=== PATIENT | female | born 1990 | race Caucasian/White ===

== ENCOUNTER 2017-06-08 09:07 | Emergency (ER) | payer BC, OTHER ==
[2017-06-08] MEDS ORDERED: Rhogam IMMUNE GLOBULIN 1,500 UNIT/1 ML IM ONE (09:23)
--- NOTE | 2017-06-08 10:01 | ED ---
General Adult HPI - General Chief complaint: Abdominal Pain Stated complaint: 6wks preg, cramping Time Seen by Provider: 06/08/17 09:22 Source: patient, RN notes reviewed Mode of arrival: ambulatory Limitations: no limitations - History of Present Illness Initial comments: 26-year-old female presents emergency department with chief complaint of vaginal bleeding. Patient states she is currently 6 weeks A0. Patient states she woke up this morning around 2:30 AM with some cramping primarily on the right side. She states that there is very minimal spotting. Patient states that she is negative blood type. Patient states that she's had a prior's sister and section. Patient denies any dysuria or hematuria. Denies any flank pain, nausea, vomiting diarrhea, constipation, fever or chills. - Related Data Home Medications Medication Instructions Recorded Confirmed Hjw-Mwki-Dyaze Acid 1 cap PO HS 06/08/17 06/08/17 [-U Capsule (formulary)] Allergies Allergy/AdvReac Type Severity Reaction Status Date / Time No Known Allergies Allergy Verified 06/08/17 09:35 Review of Systems ROS Statement: Those systems with pertinent positive or pertinent negative responses have been documented in the HPI. ROS Other: All systems not noted in ROS Statement are negative. Past Medical History Past Medical History: Hypertension History of Any Multi-Drug Resistant Organisms: None Reported Past Surgical History: Cholecystectomy Past Anesthesia/Blood Transfusion Reactions: No Reported Reaction Past Psychological History: No Psychological Hx Reported Smoking Status: Never smoker Past Alcohol Use History: Rare Past Drug Use History: None Reported - Past Family History Father Family Medical History: Hypertension General Exam Limitations: no limitations General appearance: alert, in no apparent distress Respiratory exam: Present: normal lung sounds bilaterally. Absent: respiratory distress, wheezes, rales, rhonchi, stridor Cardiovascular Exam: Present: regular rate, normal rhythm, normal heart sounds. Absent: systolic murmur, diastolic murmur, rubs, gallop, clicks GI/Abdominal exam: Present: soft, tenderness ( minimal suprapubic to right sided ), normal bowel sounds. Absent: distended, guarding, rebound, rigid Back exam: Absent: CVA tenderness (R), CVA tenderness (L) Skin exam: Present: warm, dry, intact, normal color. Absent: rash Course Vital Signs 06/08/17 09:18 Temperature 98 F Pulse Rate 92 Respiratory 20 Rate Blood Pressure 138/73 O2 Sat by Pulse 100 Oximetry Medical Decision Making - Medical Decision Making 26-year-old female presented emergency department for abdominal pain and cramping vaginal bleeding and . Patient has a single viable IUP 6 weeks 1 day. Patient is O- and she will be given RhoGAM. Patient's initial follow-up in which she went for pelvic exam at this time. Patient will be discharged return parameters were discussed. - Lab Data Result diagrams: 06/08/17 09:43 06/08/17 09:43 Lab Results 06/08/17 06/08/17 06/08/17 Range/Units 09:43 09:43 09:43 WBC 9.5 (3.8-10.6) k/uL RBC 4.74 (3.80-5.40) m/uL Hgb 14.4 (11.4-16.0) gm/dL Hct 41.8 (34.0-46.0) % MCV 88.4 (80.0-100.0) fL MCH 30.4 (25.0-35.0) pg MCHC 34.4 (31.0-37.0) g/dL RDW 14.1 (11.5-15.5) % Plt Count 293 (150-450) k/uL Neutrophils % 80 % Lymphocytes % 13 % Monocytes % 4 % Eosinophils % 1 % Basophils % 0 % Neutrophils # 7.6 (1.3-7.7) k/uL Lymphocytes # 1.3 (1.0-4.8) k/uL Monocytes # 0.4 (0-1.0) k/uL Eosinophils # 0.1 (0-0.7) k/uL Basophils # 0.0 (0-0.2) k/uL Sodium 137 (137-145) mmol/L Potassium 4.0 (3.5-5.1) mmol/L Chloride 104 (98-107) mmol/L Carbon Dioxide 22 (22-30) mmol/L Anion Gap 11 mmol/L BUN 13 (7-17) mg/dL Creatinine 0.70 (0.52-1.04) mg/dL Est GFR (MDRD) Af Amer >60 (>60 ml/min/1.73 sqM) Est GFR (MDRD) Non-Af >60 (>60 ml/min/1.73 sqM) Glucose 113 H (74-99) mg/dL Calcium 9.2 (8.4-10.2) mg/dL Urine Color Urine Appearance (Clear) Urine pH (5.0-8.0) Ur Specific Stow (1.001-1.035) Urine Protein (Negative) Urine Glucose (UA) (Negative) Urine Ketones (Negative) Urine Blood (Negative) Urine Nitrite (Negative) Urine Bilirubin (Negative) Urine Urobilinogen (<2.0) mg/dL Ur Leukocyte Esterase (Negative) Urine RBC (0-5) /hpf Urine WBC (0-5) /hpf Ur Squamous Epith Cells (0-4) /hpf Urine Bacteria (None) /hpf Urine Mucus (None) /hpf Blood Type O Negative Blood Type Recheck No Antibody Screen NEGATIVE Spec Expiration Date 06/11/2017 - 234206/08/17 Range/Units 09:55 WBC (3.8-10.6) k/uL RBC (3.80-5.40) m/uL Hgb (11.4-16.0) gm/dL Hct (34.0-46.0) % MCV (80.0-100.0) fL MCH (25.0-35.0) pg MCHC (31.0-37.0) g/dL RDW (11.5-15.5) % Plt Count (150-450) k/uL Neutrophils % % Lymphocytes % % Monocytes % % Eosinophils % % Basophils % % Neutrophils # (1.3-7.7) k/uL Lymphocytes # (1.0-4.8) k/uL Monocytes # (0-1.0) k/uL Eosinophils # (0-0.7) k/uL Basophils # (0-0.2) k/uL Sodium (137-145) mmol/L Potassium (3.5-5.1) mmol/L Chloride (98-107) mmol/L Carbon Dioxide (22-30) mmol/L Anion Gap mmol/L BUN (7-17) mg/dL Creatinine (0.52-1.04) mg/dL Est GFR (MDRD) Af Amer (>60 ml/min/1.73 sqM) Est GFR (MDRD) Non-Af (>60 ml/min/1.73 sqM) Glucose (74-99) mg/dL Calcium (8.4-10.2) mg/dL Urine Color Yellow Urine Appearance Cloudy H (Clear) Urine pH 6.5 (5.0-8.0) Ur Specific Stow 1.019 (1.001-1.035) Urine Protein Trace H (Negative) Urine Glucose (UA) Negative (Negative) Urine Ketones Negative (Negative) Urine Blood Negative (Negative) Urine Nitrite Negative (Negative) Urine Bilirubin Negative (Negative) Urine Urobilinogen <2.0 (<2.0) mg/dL Ur Leukocyte Esterase Negative (Negative) Urine RBC 1 (0-5) /hpf Urine WBC 1 (0-5) /hpf Ur Squamous Epith Cells 21 H (0-4) /hpf Urine Bacteria Rare H (None) /hpf Urine Mucus Rare H (None) /hpf Blood Type Blood Type Recheck Antibody Screen Spec Expiration Date Disposition Clinical Impression: Threatened miscarriage in early Disposition: HOME SELF-CARE Condition: Stable Instructions: Threatened Miscarriage (ED) Additional Instructions: Please return to the Emergency Department if symptoms worsen or any other concerns. Referrals: Noel Chisholm MD [Primary Care Provider] - 1-2 days Time of Disposition: 10:48
[2017-06-08 10:02] LABS: Basophils % (A) 0 %; CH 30.9; CHCM 35.1; Eosinophils # (A) 0.1 k/uL (0-0.7); Eosinophils % (A) 1 %; HCT 41.8 % (34.0-46.0); HDW 2.46; HGB 14.4 gm/dL (11.4-16.0); Luc # (Auto) 0.13; Luc % (Auto) 1; Lymphocytes # (A) 1.3 k/uL (1.0-4.8); Lymphocytes % (A) 13 %; MCH 30.4 pg (25.0-35.0); MCHC 34.4 g/dL (31.0-37.0); MCV 88.4 fL (80.0-100.0); Mean Platelet Volume 7.1; Monocytes # (A) 0.4 k/uL (0-1.0); Monocytes % (A) 4 %; Neutrophils # (A) 7.6 k/uL (1.3-7.7); Neutrophils % (A) 80 %; RBC 4.74 m/uL (3.80-5.40); RDW 14.1 % (11.5-15.5); WBC 9.5 k/uL (3.8-10.6); WBC (Perox) 9.61
[2017-06-08 10:09] LABS: Appearance,Urine Cloudy (Clear); Bacteria,Urine Rare /hpf; Bilirubin,Urine Negative (Negative); Glucose,Urine (UA) Negative (Negative); Ketones,Urine Negative (Negative); Leukocyte Esterase,Urine Negative (Negative); Mucus,Urine Rare /hpf; Nitrite,Urine Negative (Negative); PH, Urine 6.5 (5.0-8.0); Particle Count 5624; Protein,Urine Trace (Negative); RBC,Urine 1 /hpf (0-5); Specific Gravity,Urine 1.019 (1.001-1.035); Squamous Epithelial Cell,Urine 21 /hpf (0-4); UA Billing (MACRO vs. MICRO) MICRO; Urobilinogen,Urine <2.0 mg/dL (<2.0); WBC,Urine 1 /hpf (0-5)
[2017-06-08 10:11] LABS: Anion Gap 11 mmol/L; Blood Urea Nitrogen 13 mg/dL (7-17); Calcium 9.2 mg/dL (8.4-10.2); Carbon Dioxide 22 mmol/L (22-30); Chloride 104 mmol/L (98-107); Glucose 113 mg/dL (74-99); Non-African American GFR(MDRD) >60 (>60 ml/min/1.73 sqM); Sodium 137 mmol/L (137-145)
--- NOTE | 2017-06-08 10:38 | US ---
EXAMINATION TYPE: US OB <=14 wks transvag DATE OF EXAM: 06/08/2017 COMPARISON: NONE CLINICAL HISTORY: Pain. cramping, spotting x 1 day EXAM PERFORMED: Transvaginal (TV) and Transabdominal (TA) endovaginal scanning performed for better evaluation of the fetus. EXAM MEASUREMENTS: GESTATIONAL AGE / DATING Physician Established: ( 6 weeks/4 days) EDC: 01/28/18 Dates by LMP: (6 weeks/4 days) EDC: 01/28/18 Dates by First Scan: No previous Dates by Current Scan for: ( 6 weeks/1 days) EDC: 01/31/17 MATERNAL ANATOMY Uterus: 9.5 x 7.4 x 5.2 cm Right Ovary: 1.9 x 1.8 x 1.4 cm Left Ovary: 3.3 x 2.4 x 2.0 cm Post CDS / Adnexa: wnl Presence of free fluid: no Presence of corpus luteal cyst: no Presence of subchorionic bleed: no GESTATION / SURVEY CRL: 0.5 cm 6eeks/0 days) MSD: 1.7 cm 6eeks/2 days) Yolk Sac (normal less than 6mm): 0.3 cm Heart Rate: 120pm Rhythm: Normal IUP: Viable IUP Date of LMP: 04/23/17 Beta HcG (if available): IMPRESSION: Single viable intrauterine corresponding to ultrasound age 6 weeks 1 day with estimated gilberto e of delivery 01/31/2018 by today's exam. Limited survey.
[2017-06-08 11:10] VITALS: BP 120/80; PULSE 78; RESP 16; TEMP 97.8
== END 2017-06-08 11:08 | disposition home or self-care (01) ==
LOC: EC 09:07
DX: O20.0 Threatened abortion (principal); Z67.41 Type O blood, Rh negative; Z79.899 Other long term (current) drug therapy; Z90.49 Acquired absence of other specified parts of digestive tract; Z98.890 Other specified postprocedural states; Z3A.01 Less than 8 weeks gestation of pregnancy
CPT/HCPCS: 99284; 96372; 90384; 36415; 86900; 86901; 80048; 85025; 86850; 81001; 84702; 76801; 76817; J2791

== ENCOUNTER → 2017-06-24 | Outpatient (CLI) | payer OTHER ==
[2017-06-24 10:44] LABS: Glucose 110 mg/dL (74-99); Non-African American GFR(MDRD) >60 (>60 ml/min/1.73 sqM)
[2017-06-24 11:05] LABS: CH 29.3; CHCM 33.3; HDW 2.33; HGB 13.5 gm/dL (11.4-16.0); MCH 29.8 pg (25.0-35.0); MCHC 33.8 g/dL (31.0-37.0); MCV 88.2 fL (80.0-100.0); Mean Platelet Volume 6.6; RBC 4.53 m/uL (3.80-5.40); RDW 12.9 % (11.5-15.5); WBC 7.9 k/uL (3.8-10.6)
[2017-06-24 11:16] LABS: Hepatitis B Surface Ag Index 0.06
== END | disposition home or self-care (01) ==
LOC: LABWHC1 10:04
PROVIDERS: ATTEND Obstetrics & Gynecology
DX: Z34.81 Encounter for supervision of other normal pregnancy, first trimester (principal)
CPT/HCPCS: 36415; 82565; 82947; 85027; 86762; 86780; 86850; 86870; 86880; 86900; 86901; 87340

== ENCOUNTER → 2017-10-16 | Outpatient (CLI) | payer OTHER ==
[2017-10-16 10:50] LABS: HCT 37.9 % (34.0-46.0); MCH 29.1 pg (25.0-35.0); MCHC 31.7 g/dL (31.0-37.0); MCV 91.7 fL (80.0-100.0); Mean Platelet Volume 7.3; Platelet Count 254 k/uL (150-450); RBC 4.14 m/uL (3.80-5.40); RDW 15.3 % (11.5-15.5); WBC 15.4 k/uL (3.8-10.6)
== END | disposition home or self-care (01) ==
LOC: LABWHC1 09:23
PROVIDERS: ATTEND Obstetrics & Gynecology
DX: Z34.82 Encounter for supervision of other normal pregnancy, second trimester (principal); Z3A.00 Weeks of gestation of pregnancy not specified
CPT/HCPCS: 36415; 82950; 85027; 86850

== ENCOUNTER 2018-01-21 06:00 | Inpatient (IN) | payer BC, OTHER ==
[2018-01-20 16:22] VITALS: BMI 38.7
[2018-01-21] MEDS ORDERED: ceFAZolin IN SWFI 2 GM/20 ML SYRINGE IVP ONE (06:25)
[2018-01-21] MEDS ORDERED: CITRIC ACID-SODIUM CITRATE 15 ML CUP PO ONE (06:25)
[2018-01-21] MEDS: LACTATED RINGERS 1,000 ML IV SCH ×2 (06:37→20:39)
[2018-01-21 06:53] LABS: Basophils % (A) 0 %; Eosinophils # (A) 0.1 k/uL (0-0.7); Eosinophils % (A) 1 %; HCT 34.6 % (34.0-46.0); HGB 11.4 gm/dL (11.4-16.0); Lymphocytes # (A) 2.2 k/uL (1.0-4.8); Lymphocytes % (A) 17 %; MCH 28.6 pg (25.0-35.0); MCV 86.5 fL (80.0-100.0); Mean Platelet Volume 7.3; Monocytes # (A) 0.7 k/uL (0-1.0); Monocytes % (A) 6 %; Neutrophils # (A) 9.4 k/uL (1.3-7.7); Neutrophils % (A) 74 %; Platelet Count 243 k/uL (150-450); RDW 14.6 % (11.5-15.5); WBC 12.8 k/uL (3.8-10.6)
[2018-01-21] MEDS ORDERED: ONDANSETRON 4 MG/2 ML VIAL ONE (10:06)
[2018-01-21] MEDS ORDERED: PHENYLEPHRINE-0.9% NACL SYG 1 MG/10 ML SYRINGE ONE (10:06)
[2018-01-21] MEDS ORDERED: MORPHINE SULFATE (PF) 0.3 MG/0.3 ML SYR ONE (10:06)
[2018-01-21] MEDS ORDERED: OXYTOCIN 10 UNIT/ML 1 ML VIAL ONE (10:06)
[2018-01-21] MEDS ORDERED: DEXAMETHASONE SOD PHOS (MDV) 100 MG/10 ML VIAL ONE (10:06)
[2018-01-21] MEDS ORDERED: diphenhydrAMINE 50 MG/ML 1 ML VIAL ONE (10:06)
[2018-01-21] MEDS ORDERED: KETOROLAC 30 MG/ML 1 ML VIAL ONE (10:06)
[2018-01-21] MEDS ORDERED: ONDANSETRON 4 MG/2 ML VIAL IVP PRN (10:31)
[2018-01-21] MEDS ORDERED: diphenhydrAMINE 50 MG/ML 1 ML VIAL IVP PRN ×2 (10:31→10:45)
[2018-01-21] MEDS ORDERED: MORPHINE SULFATE 4 MG/ML SYRINGE IVP PRN (10:31)
[2018-01-21] MEDS ORDERED: NALOXONE 0.4 MG/ML 1 ML VIAL IV PRN (10:31)
[2018-01-21] MEDS ORDERED: diphenhydrAMINE 50 MG CAP PO PRN (10:45)
[2018-01-21] MEDS ORDERED: METOCLOPRAMIDE 5 MG/ML 2 ML VIAL IVP PRN (10:45)
[2018-01-21] MEDS ORDERED: diphenhydrAMINE 25 MG CAP PO PRN (10:45)
[2018-01-21] MEDS ORDERED: Rhogam IMMUNE GLOBULIN 1,500 UNIT/1 ML IM ONE (10:45)
[2018-01-21] MEDS ORDERED: SIMETHICONE 80 MG CHEWABLE PO PRN (10:45)
[2018-01-21] MEDS ORDERED: OXYTOCIN 20 UNITS/1000 ML NS 1,000 ML IV SCH (10:45)
[2018-01-21] MEDS ORDERED: ZOLPIDEM 5 MG TAB PO PRN (10:45)
[2018-01-21] MEDS ORDERED: MORPHINE SULFATE 4MG/4ML SYRG IVP PRN (10:50)
--- NOTE | 2018-01-21 12:57 | P.HPOB ---
History of Present Illness H&P Date: 01/21/18 Chief Complaint: RLTCS 27-year-old presents at 39 weeks and 1 day for repeat low transverse C- section. Review of Systems All systems: negative Constitutional: Denies chills, Denies fever Eyes: denies blurred vision, denies pain Ears, nose, mouth and throat: Denies headache, Denies sore throat Cardiovascular: Denies chest pain, Denies shortness of breath Respiratory: Denies cough Gastrointestinal: Denies abdominal pain, Denies diarrhea, Denies nausea, Denies vomiting Genitourinary: Denies dysuria, Denies hematuria Musculoskeletal: Denies myalgias Integumentary: Denies pruritus, Denies rash Neurological: Denies numbness, Denies weakness Psychiatric: Denies anxiety, Denies depression Endocrine: Denies fatigue, Denies weight change Past Medical History Additional Past Medical History / Comment(s): Obstetric history: She's had 3 pregnancies. Her first was elective termination. Her second was a section due to failure to progress. This is her third . She's had care with ne since 9 weeks gestation. Blood type is O-, rubella nonimmune, treponema antibody negative, hepatitis B negative. Normal 1 hour glucose tolerance test. Milligram given at 20 weight 8 weeks and 5 days on November 09 2017. History of Any Multi-Drug Resistant Organisms: None Reported Past Surgical History: Section, Cholecystectomy Past Anesthesia/Blood Transfusion Reactions: No Reported Reaction Past Psychological History: No Psychological Hx Reported Smoking Status: Never smoker Past Alcohol Use History: Rare Additional Past Alcohol Use History / Comment(s): SOCIAL WHEN NOT Past Drug Use History: None Reported - Past Family History Father Family Medical History: Hypertension Medications and Allergies Home Medications Medication Instructions Recorded Confirmed Type Ewd-Vjsb-Uovpu Acid 1 cap PO HS 06/08/17 01/21/18 History [-U Capsule (formulary)] Allergies Allergy/AdvReac Type Severity Reaction Status Date / Time No Known Allergies Allergy Verified 01/20/18 16:14 Exam Osteopathic Statement: *. No significant issues noted on an osteopathic structural exam other than those noted in the History and Physical/Consult. - Vital Signs Vital signs: Vital Signs Temp Pulse Resp BP Pulse Ox 01/21/18 12:23 96.8 F L 85 16 113/59 01/21/18 11:54 78 16 115/68 01/21/18 11:39 96.3 F L 79 16 116/67 01/21/18 11:31 16 99 01/21/18 11:24 86 16 115/57 01/21/18 11:08 82 16 114/59 01/21/18 10:54 96.8 F L 82 16 111/56 98 01/21/18 10:31 16 99 01/21/18 06:25 96.7 F L 97 16 133/82 98 Intake and Output 01/20/18 01/21/18 01/21/18 22:59 06:59 14:59 Output Total 400 Balance -400 Output: Estimated Blood Loss 400 Other: Weight 122.47 kg 122.47 kg Heart: Regular rate and rhythm Lungs: Clear to auscultation bilaterally Abdomen: Soft, nontender Extremities: Negative Homans sign Results Result Diagrams: 01/21/18 06:39 Abnormal Lab Results - Last 24 Hours (Table) 01/21/18 Range/Units 06:39 WBC 12.8 H (3.8-10.6) k/uL Neutrophils # 9.4 H (1.3-7.7) k/uL Assessment and Plan (1) Previous section Current Visit: Yes Status: Acute Code(s): Z98.891 - HISTORY OF UTERINE SCAR FROM PREVIOUS SURGERY SNOMED Code(s): 727398378 Plan: 1. Repeat low transverse
--- NOTE | 2018-01-21 12:58 | P.OP ---
Date of Procedure: 01/21/18 Preoperative Diagnosis: 1. at 39 weeks and 1 day 2. Previous low transverse Postoperative Diagnosis: 1. at 39 weeks and 1 day 2. Previous low transverse Procedure(s) Performed: Repeat low transverse Anesthesia: spinal Surgeon: Fang Marinelli [employer] Director #1: Peace Vivar Estimated Blood Loss (ml): 400 IV fluids (ml): 400 Urine output (ml): 50 Pathology: other (placenta) Condition: stable Disposition: floor Operative Findings: Viable male, Apgars 9, 9, weight 7 lbs. 6 oz. normal uterus tubes and ovaries Description of Procedure: Patient was taken to the operating room where spinal anesthesia was found be adequate. She was prepped and draped in normal sterile fashion in dorsal supine position with a leftward tilt. Pfannenstiel skin incision was made the scalpel and carried through to the underlying layer of fascia with the scalpel. Fascia was incised in midline and carried bilaterally with the Begum scissors. The superior aspect of the fascial incision was grasped with James clamps elevated and the underlying rectus muscles dissected off with the Begum's. Attention was then turned to inferior aspect of same incision which in a similar fashion was grasped tented up and the underlying rectus muscles dissected off with the Begum's. The rectus muscles were the midline and the peritoneum was identified tented up and entered sharply with the scalpel. The incision was extended superiorly and inferiorly with good visualization of the bladder. The bladder blade was inserted and the vesicouterine peritoneum was incised the Metzenbaums then carried bilaterally and bladder flap created digitally. A low transverse incision was then made on the uterus with the scalpel. This was carried bilaterally and digital manner. Infant's head delivered atraumatically, nose and mouth bulb suctioned, cord clamped and cut, handed off to waiting nurses. Apgars 9,9, weight 7 lbs. 6 oz. Placenta delivered manually, intact with three-vessel cord. The uterus is exteriorized and cleared of all clots and debris. The uterine incision was closed with 0 Vicryl in a running locked fashion. Second layer of the same sutures used in imbricating fashion to obtain excellent hemostasis. Both ovaries and tubes appeared normal. The uterus was placed back into the abdomen. The peritoneum was reapproximated using 2-0 Vicryl in a running fashion. The muscles were reapproximated using 2-0 Vicryl in interrupted fashion. The fascia was reapproximated using 0 Vicryl in a running fashion. The subcutaneous tissues closed with 3-0 Vicryl running fashion. The skin was closed serg. Patient tolerated the procedure well, sponge and instrument counts were correct times 2 and she was taken to the recovery room in stable condition.
[2018-01-21] MEDS ORDERED: MORPHINE SULFATE 4 MG/0.8 ML SYRINGE (INJ) IVP PRN (13:08)
[2018-01-21] MEDS: KETOROLAC 30 MG/ML 1 ML VIAL IVP PRN (18:35)
[2018-01-21] MEDS: SENNOSIDES-DOCUSATE SODIUM 1 EACH TAB PO SCH (20:09)
[2018-01-22] MEDS: KETOROLAC 30 MG/ML 1 ML VIAL IVP PRN ×2 (00:34→07:59)
[2018-01-22] MEDS: LACTATED RINGERS 1,000 ML IV SCH ×2 (00:53→01:26)
[2018-01-22 08:19] LABS: Basophils % (A) 0 %; Eosinophils # (A) 0.1 k/uL (0-0.7); Eosinophils % (A) 1 %; HCT 32.9 % (34.0-46.0); HGB 10.9 gm/dL (11.4-16.0); Lymphocytes # (A) 2.2 k/uL (1.0-4.8); Lymphocytes % (A) 15 %; MCHC 33.1 g/dL (31.0-37.0); MCV 87.5 fL (80.0-100.0); Mean Platelet Volume 7.6; Monocytes # (A) 0.6 k/uL (0-1.0); Monocytes % (A) 4 %; Neutrophils # (A) 11.1 k/uL (1.3-7.7); Neutrophils % (A) 79 %; Platelet Count 223 k/uL (150-450); RBC 3.77 m/uL (3.80-5.40); RDW 14.7 % (11.5-15.5); WBC 14.1 k/uL (3.8-10.6)
--- NOTE | 2018-01-22 10:52 | P.PNOBGPC ---
Subjective - Subjective Principal diagnosis: Status post repeat low transverse . POD #1 Interval history: Patient seen and examined. Denies nausea, vomiting, chest pain, shortness of breath or calf pain. Patient reports: Reports appetite normal, Reports voiding normally, Reports pain well controlled, Reports ambulating normally [place]ow: doing well Objective - Vital Signs Latest vital signs: Vital Signs Temp Pulse Resp BP Pulse Ox 01/22/18 08:00 97.0 F L 80 16 116/64 01/22/18 05:46 18 01/22/18 05:00 17 01/22/18 04:30 97.9 F 76 17 111/70 97 01/22/18 03:00 18 01/22/18 00:50 18 01/22/18 00:00 97.8 F 83 18 125/66 100 01/21/18 23:00 18 01/21/18 20:38 18 01/21/18 20:05 97.8 F 84 18 125/72 98 01/21/18 19:00 18 01/21/18 17:00 16 01/21/18 15:48 98.6 F 91 16 92/65 01/21/18 14:47 16 01/21/18 13:31 16 01/21/18 12:54 97.4 F L 90 16 128/61 01/21/18 12:23 96.8 F L 85 16 113/59 01/21/18 11:54 78 16 115/68 01/21/18 11:39 96.3 F L 79 16 116/67 01/21/18 11:31 16 99 01/21/18 11:24 86 16 115/57 01/21/18 11:08 82 16 114/59 01/21/18 10:54 96.8 F L 82 16 111/56 98 Intake and Output 01/21/18 01/22/18 01/22/18 22:59 06:59 14:59 Output Total 800 800 900 Balance -800 -800 -900 Output: Urine 800 800 900 Other: # Voids 1 - Exam Lungs: bilateral: normal Chest: Normal S1, Normal S2 Extremities: Present: normal Abdomen: Present: normal appearance, soft. Absent: distention, tenderness Incision: Present: normal, dry, intact Uterus: Present: normal, firm - Labs Labs: Abnormal Lab Results - Last 24 Hours (Table) 01/22/18 Range/Units 08:07 WBC 14.1 H (3.8-10.6) k/uL RBC 3.77 L (3.80-5.40) m/uL Hgb 10.9 L (11.4-16.0) gm/dL Hct 32.9 L (34.0-46.0) % Neutrophils # 11.1 H (1.3-7.7) k/uL Assessment and Plan (1) Previous section Current Visit: Yes Status: Acute Code(s): Z98.891 - HISTORY OF UTERINE SCAR FROM PREVIOUS SURGERY SNOMED Code(s): 876413479 Plan: 1. Increase ambulation 2. Pain control 3. Regular diet
[2018-01-22] MEDS ORDERED: HYDROcodone/APAP 7.5-325MG 1 EACH TAB PO PRN (10:55)
--- NOTE | 2018-01-22 11:59 | P.PN ---
Progress Note - Text Progress Note Date: 01/22/18 Postoperative day 1 status post section under spinal anesthesia, and intrathecal morphine given for postoperative analgesia, patient doing well, there is no paresthesia related complications, patient does complain of mild pruritus, further management as per her primary team
[2018-01-22] MEDS: SENNOSIDES-DOCUSATE SODIUM 1 EACH TAB PO SCH ×2 (13:13→20:26)
[2018-01-22] MEDS: IBUPROFEN 600 MG TAB PO PRN (14:55)
[2018-01-22] MEDS ORDERED: MEASLES-MUMPS-RUBELLA VACC/PF 12,500 UNIT/0.5 ML VIAL SQ ONE (15:52)
[2018-01-22] MEDS: ACETAMINOPHEN TAB 325 MG TAB PO PRN (20:26)
[2018-01-23] MEDS: IBUPROFEN 600 MG TAB PO PRN ×2 (00:01→07:52)
[2018-01-23] MEDS: ACETAMINOPHEN TAB 325 MG TAB PO PRN ×2 (03:16→11:07)
--- NOTE | 2018-01-23 07:11 | P.DS ---
Providers Date of admission: 01/21/18 06:00 Expected date of discharge: 01/23/18 Attending physician: Fang Marinelli Primary care physician: Stated None - Discharge Diagnosis(es) (1) Previous section Current Visit: Yes Status: Acute Hospital Course: Pt presented for repeat low transverse . She underwent this procedure without complication. Her Post op course was uneventful. Her pain is well controlled. She is tolerating a reg diet. Denies N/V, F/C, CP, SOB or calf pain. She will be discharged home POD #2 in stable condition to follow up with me in one week. Plan - Discharge Summary New Discharge Prescriptions: New HYDROcodone/APAP 7.5-325MG [[place] 7.5-325] 1 each PO Q6H PRN #30 tab PRN Reason: MODERATE Pain Ibuprofen [Motrin] 600 mg PO Q6HR PRN #30 tab PRN Reason: Mild Pain Or Fever >= 100.5 No Action Lwy-Xoir-Ucavd Acid [-U Capsule (formulary)] 1 cap PO HS Discharge Medication List Xzc-Bygw-Onxlb Acid [-U Capsule (formulary)] 1 cap PO HS [History] HYDROcodone/APAP 7.5-325MG [[place] 7.5-325] 1 each PO Q6H PRN #30 tab 01/23/18 [ Rx] Ibuprofen [Motrin] 600 mg PO Q6HR PRN #30 tab 01/23/18 [Rx] Follow up Appointment(s)/Referral(s): Fang Marinelli DO [Doctor of Osteopathic Medicine] - 1 Week Discharge Disposition: HOME SELF-CARE
[2018-01-23 08:24] VITALS: BP 128/74; PULSE 89; RESP 18; TEMP 98.9
[2018-01-23] MEDS: SENNOSIDES-DOCUSATE SODIUM 1 EACH TAB PO SCH (09:59)
== END 2018-01-23 14:23 | disposition home or self-care (01) | DRG 766 ==
LOC: 4FBP 06:00
PROVIDERS: ADMIT Obstetrics & Gynecology; ATTEND Obstetrics & Gynecology
PROC: 10D00Z1 Extraction of Products of Conception, Low, Open Approach (ICD-10-PCS; principal; 2018-01-21 08:00)
DX: O34.211 Maternal care for low transverse scar from previous cesarean delivery (principal); Z37.0 Single live birth; Z3A.39 39 weeks gestation of pregnancy; Z82.49 Family history of ischemic heart disease and other diseases of the circulatory system
CPT/HCPCS: 85025; 85461; 86850; 86900; 86901; 88307; 90707